=== PATIENT | male | born 1960 | race Caucasian/White ===

== ENCOUNTER 2018-01-19 08:51 | Inpatient (IN) | payer OTHER, MEDICARE ==
[~2018-01-19] VITALS: Ht 188 cm; Wt 129.5 kg
[~2018-01-19 08:51] MED LIST: AMARYL2 MG PO; AMLOD-VALSA-HC1 EAC2 PO; ASPIR 8181 M1; ASPIRIN81 M1 PO; AZULFIDINE500 MG PO; B COMPLETE1 EACH PO; BENAZEPRIL HCL10 MG PO; BENTYL20 MG PO; BIOTIN2500 MCG PO; BUTRANS1 EAC1 TD; CEFTIN500 MG PO; CELEBREX200 MG PO; CELECOXIB200 MG PO; CODEINE PO; COUMADIN5 MG PO; CYMBALTA30 MG PO; DECADRON0.5 MG; DILAUDID4 MG PO; DURAGESIC50 MCG TD; FLEXERIL10 MG; FLEXERIL10 MG PO; FOLIC ACID1 MG PO; GLUCOPHAGE850 MG PO; HUMIRA40 MG/0.8; HUMIRA40 MG/0.8 SQ; HYDROXYCHLOROQ200 MG PO; LEFLUNOMIDE20 MG PO; LIPITOR40 MG PO; LOMOTIL TABLET1 EACH PO; LOVENOX120 MG/0.8 SC; LYRICA75 MG PO; METFORMIN HCL850 MG PO; METHOTREXATE SODIUM SC; METHOTREXATE2.5 MG SC; METHYLPREDNISOLO4 MG PO; MILLIPRED5 MG PO; MOBIC7.5 MG PO; MUPIROCIN22 GM TP; NEURONTIN300 MG; NEURONTIN600 MG; NEURONTIN600 MG PO; NEURONTIN800 MG PO; NEXIUM40 MG; NEXIUM40 MG PO; NORVASC5 MG PO; OMEPRAZOLE40 M1 PO; ORENCIA250 MG/10 IV; PERCOCET 10/1 TABLET PO; PERCOCET 5/31 TABLET PO; PERCOCET 7.51 TABLET PO; PRAVASTATIN SOD40 MG PO; PREDNISONE5 MG PO; PROMETHAZINE HC25 M1 PO; PROMETHAZINE PO; RELAFEN500 M1; REMERON15 M2 PO; SIMVASTATIN40 M1 PO; SIMVASTATIN40 MG PO; TIZANIDINE HCL4 MG PO; VALIUM5 MG PO; VERAPAMIL HCL360 MG; VERELAN 360 MG360 MG PO; VESICARE5 MG PO; VITAMIN D22000 UNIT PO; XARELTO20 MG PO; ZANAFLEX4 M1 PO; ZOLOFT100 MG; [UNRECOGNIZED DRUG - OTHER] SC
[2018-01-19 09:25] VITALS: BP 139/72
[2018-01-19 16:00] VITALS: BP 130/62
[2018-01-19 19:41] VITALS: BP 129/65
[2018-01-19 20:00] VITALS: BP 129/65
[2018-01-19 23:37] VITALS: BP 125/61
[2018-01-20 04:00] VITALS: BP 114/60
[2018-01-20 08:03] VITALS: BP 130/67
[2018-01-20 12:49] VITALS: BP 150/70
[2018-01-20 15:35] VITALS: BP 130/68
[2018-01-21] VITALS (17 sets, daily range): BP systolic 104–147; BP diastolic 67–87
[2018-01-21 20:20] LABS: BASE EXCESS -0.5 mEq/L (-3 to +3); BICARBONATE 24.9 mEq/L (22-26); CARBOXY HGB 3.1 % (0-5); COMMENTS - BLOOD GASES C+; DEVICE VENT; FI02 50 %; MECHANICAL RATE 16 resp/min; METHEMOGLOBIN 1.4 % (0-1.5); MODE A/C; PCO2 43 mm Hg (35-45); PEEP 5 CM/H20; PO2 72 mm Hg (80-100); SITE LR; TIDAL VOLUME 450 ML; TOTAL RESP RATE 18 resp/min; pH 7.37 (7.35-7.45)
[2018-01-21 22:43] LABS: BASOPHIL (%) 0.1 % (0-1); EOSINOPHIL (%) 0 % (0-5); HEMATOCRIT 35.7 % (38.0-50.0); IMMATURE GRANULOCYTE (%) 0.6 % (0.0-0.7); LYMPHOCYTE (%) 1.9 % (15-42); LYMPHOCYTE COUNT 0.3 K/uL (1.0-2.8); MCH 30.9 PG (29.0-34.0); MCHC 33.9 G/DL (30.0-36.0); MCV 91.3 FL (86-99); MONOCYTE (%) 5.4 % (3-12); NEUTROPHIL COUNT 16.1 K/uL (1.8-6.4); PLATELET COUNT 222 K/uL (156-360); RBC DIS.WIDTH-CV 13.6 % (11.8-14.6); RBC DIS.WIDTH-SD 45.2 % (39-53); RED BLOOD COUNT 3.91 M/uL (4.00-5.50); WHITE BLOOD COUNT 17.5 K/uL (4.1-10.2)
[2018-01-21 22:50] LABS: HEMOGLOBIN 10.1 G/DL (12.5-16.6)
[2018-01-21 22:51] LABS: INTER. NORMALIZED RATIO 1.6
[2018-01-21 22:53] LABS: ALBUMIN 3.5 g/dL (3.2-4.8); CHLORIDE 102 mEq/L (99-109); POTASSIUM 4.9 mEq/L (3.7-5.4); SODIUM 136 mEq/L (136-147)
[2018-01-21 22:54] LABS: MAGNESIUM 2.9 mg/dL (1.3-2.7)
[2018-01-21 22:55] LABS: GLUCOSE 186 mg/dL (70-99)
[2018-01-21 22:56] LABS: TOTAL PROTEIN 6.1 g/dL (6.4-8.3)
[2018-01-21 22:57] LABS: TOTAL BILIRUBIN 1.2 mg/dL (0.0-1.0)
[2018-01-21 22:59] LABS: ALKALINE PHOSPHATASE 95 IU/L (3-129); CREATININE 0.8 mg/dL (0.6-1.3); GFR ESTIMATE (CALCULATED) > 59 mL/min/ (58.99-99999); PHOSPHORUS 3.3 mg/dL (2.5-4.9)
[2018-01-21 23:00] LABS: UREA NITROGEN (BUN) 11 mg/dL (9-23)
[2018-01-21 23:01] LABS: AST (GOT) 54 IU/L (2-34)
[2018-01-21 23:02] LABS: ALT (GPT) 64 IU/L (3-49)
[2018-01-22] VITALS (24 sets, daily range): BP systolic 86–121; BP diastolic 54–79
[2018-01-22 06:09] LABS: BASOPHIL (%) 0.1 % (0-1); EOSINOPHIL (%) 0 % (0-5); HEMATOCRIT 34.7 % (38.0-50.0); HEMOGLOBIN 11.4 G/DL (12.5-16.6); IMMATURE GRANULOCYTE (%) 0.7 % (0.0-0.7); LYMPHOCYTE (%) 3.2 % (15-42); LYMPHOCYTE COUNT 0.4 K/uL (1.0-2.8); MCH 30.8 PG (29.0-34.0); MCHC 32.9 G/DL (30.0-36.0); MCV 93.8 FL (86-99); MONOCYTE (%) 5.2 % (3-12); MONOCYTE COUNT 0.7 K/uL (0-0.8); NEUTROPHIL (%) 90.8 % (45-76); NEUTROPHIL COUNT 12.4 K/uL (1.8-6.4); PLATELET COUNT 236 K/uL (156-360); RBC DIS.WIDTH-CV 13.6 % (11.8-14.6); RBC DIS.WIDTH-SD 46.4 % (39-53); WHITE BLOOD COUNT 13.7 K/uL (4.1-10.2)
[2018-01-22 06:18] LABS: CHLORIDE 102 MEQ/L (99-109); CREATININE 0.8 MG/DL (0.6-1.3); GFR ESTIMATE (CALCULATED) > 59 mL/min/ (58.99-99999); GLUCOSE 196 mg/dL (70-99); POTASSIUM 4.1 MEQ/L (3.7-5.4); SODIUM 138 MEQ/L (136-147); UREA NITROGEN (BUN) 11 mg/dL (9-23)
[2018-01-23] VITALS (23 sets, daily range): BP systolic 90–123; BP diastolic 49–76
[2018-01-23 05:09] LABS: BASOPHIL (%) 0 % (0-1); EOSINOPHIL (%) 0 % (0-5); HEMATOCRIT 28.1 % (38.0-50.0); HEMOGLOBIN 9.5 G/DL (12.5-16.6); IMMATURE GRANULOCYTE (%) 0.7 % (0.0-0.7); LYMPHOCYTE (%) 5.6 % (15-42); LYMPHOCYTE COUNT 0.7 K/uL (1.0-2.8); MCHC 33.8 G/DL (30.0-36.0); MCV 91.8 FL (86-99); MONOCYTE (%) 7.4 % (3-12); MONOCYTE COUNT 0.9 K/uL (0-0.8); NEUTROPHIL (%) 86.3 % (45-76); NEUTROPHIL COUNT 10.6 K/uL (1.8-6.4); PLATELET COUNT 224 K/uL (156-360); RBC DIS.WIDTH-CV 13.5 % (11.8-14.6); RBC DIS.WIDTH-SD 45.2 % (39-53); RED BLOOD COUNT 3.06 M/uL (4.00-5.50); WHITE BLOOD COUNT 12.3 K/uL (4.1-10.2)
[2018-01-23 05:33] LABS: CHLORIDE 109 mEq/L (99-109); POTASSIUM 3.7 mEq/L (3.7-5.4); SODIUM 144 mEq/L (136-147)
[2018-01-23 05:35] LABS: GLUCOSE 167 mg/dL (70-99)
[2018-01-23 05:39] LABS: CREATININE 0.7 mg/dL (0.6-1.3); GFR ESTIMATE (CALCULATED) > 59 mL/min/ (58.99-99999)
[2018-01-23 05:40] LABS: UREA NITROGEN (BUN) 15 mg/dL (9-23)
[2018-01-24] VITALS (20 sets, daily range): BP systolic 96–136; BP diastolic 53–76
[2018-01-24 06:32] LABS: CHLORIDE 112 MEQ/L (99-109); CREATININE 0.5 MG/DL (0.6-1.3); GFR ESTIMATE (CALCULATED) > 59 mL/min/ (58.99-99999); GLUCOSE 161 mg/dL (70-99); POTASSIUM 3.8 MEQ/L (3.7-5.4); SODIUM 142 MEQ/L (136-147); UREA NITROGEN (BUN) 15 mg/dL (9-23)
[2018-01-24 07:02] LABS: BASOPHIL (%) 0 % (0-1); EOSINOPHIL (%) 0 % (0-5); HEMATOCRIT 26.9 % (38.0-50.0); HEMOGLOBIN 8.9 G/DL (12.5-16.6); IMMATURE GRANULOCYTE (%) 1.7 % (0.0-0.7); LYMPHOCYTE (%) 10.6 % (15-42); LYMPHOCYTE COUNT 0.8 K/uL (1.0-2.8); MCH 31.2 PG (29.0-34.0); MCHC 33.1 G/DL (30.0-36.0); MCV 94.4 FL (86-99); MONOCYTE (%) 4.3 % (3-12); MONOCYTE COUNT 0.3 K/uL (0-0.8); NEUTROPHIL (%) 83.4 % (45-76); NEUTROPHIL COUNT 6.4 K/uL (1.8-6.4); PLATELET COUNT 186 K/uL (156-360); RBC DIS.WIDTH-CV 13.6 % (11.8-14.6); RED BLOOD COUNT 2.85 M/uL (4.00-5.50); WHITE BLOOD COUNT 7.6 K/uL (4.1-10.2)
[2018-01-24] MEDS ORDERED: METHOTREXA250 MG/10 SC (12:29)
[2018-01-24] MEDS ORDERED: PROMETHAZINE V473 ML PO (12:30)
[2018-01-24 13:51] LABS: INTER. NORMALIZED RATIO 1.1
[2018-01-24 13:54] LABS: PTT 24.3 SEC (25-37)
[2018-01-25] VITALS (22 sets, daily range): BP systolic 123–155; BP diastolic 62–93
[2018-01-25 03:27] LABS: BASOPHIL (%) 0.1 % (0-1); EOSINOPHIL (%) 0 % (0-5); HEMATOCRIT 28.6 % (38.0-50.0); HEMOGLOBIN 9.5 G/DL (12.5-16.6); IMMATURE GRANULOCYTE (%) 1.7 % (0.0-0.7); LYMPHOCYTE (%) 8.4 % (15-42); LYMPHOCYTE COUNT 0.8 K/uL (1.0-2.8); MCH 30.8 PG (29.0-34.0); MCHC 33.2 G/DL (30.0-36.0); MCV 92.9 FL (86-99); MONOCYTE (%) 5.9 % (3-12); MONOCYTE COUNT 0.6 K/uL (0-0.8); NEUTROPHIL (%) 83.9 % (45-76); NEUTROPHIL COUNT 7.9 K/uL (1.8-6.4); NRBC (%) 0.2 /100 WBC (0-0); RBC DIS.WIDTH-CV 13.7 % (11.8-14.6); RBC DIS.WIDTH-SD 46.1 % (39-53); RED BLOOD COUNT 3.08 M/uL (4.00-5.50); WHITE BLOOD COUNT 9.4 K/uL (4.1-10.2)
[2018-01-25 03:28] LABS: PLATELET COUNT 243 K/uL (156-360)
[2018-01-25 03:39] LABS: CHLORIDE 111 mEq/L (99-109); POTASSIUM 4.1 mEq/L (3.7-5.4); SODIUM 144 mEq/L (136-147)
[2018-01-25 03:46] LABS: GLUCOSE 171 mg/dL (70-99)
[2018-01-25 03:47] LABS: TROP-I INTERPRETATION NEGATIVE; TROPONIN-I 0.01 ng/mL (0.0-0.30)
[2018-01-25 03:49] LABS: PHOSPHORUS 3.2 mg/dL (2.5-4.9)
[2018-01-25 03:50] LABS: CREATININE 0.7 mg/dL (0.6-1.3); GFR ESTIMATE (CALCULATED) > 59 mL/min/ (58.99-99999)
[2018-01-25 03:51] LABS: UREA NITROGEN (BUN) 15 mg/dL (9-23)
[2018-01-25 03:53] LABS: MAGNESIUM 2.5 mg/dL (1.3-2.7)
[2018-01-25 22:44] LABS: GLUCOSE 50 mg/dL (70-99)
[2018-01-26] VITALS (11 sets, daily range): BP systolic 113–144; BP diastolic 58–79
[2018-01-26 05:23] LABS: HEMOGLOBIN 9.6 G/DL (12.5-16.6); MCHC 33.1 G/DL (30.0-36.0); MCV 93.5 FL (86-99); PLATELET COUNT 224 K/uL (156-360); RBC DIS.WIDTH-CV 13.7 % (11.8-14.6); RBC DIS.WIDTH-SD 46.7 % (39-53); WHITE BLOOD COUNT 7.9 K/uL (4.1-10.2)
[2018-01-26 21:45] LABS: C DIFF TOXIN NEGATIVE (NEGATIVE)
[2018-01-27 00:10] VITALS: BP 145/76
[2018-01-27 04:00] VITALS: BP 134/75
[2018-01-27 08:50] VITALS: BP 116/68
[2018-01-27 11:32] VITALS: BP 134/72
[2018-01-27 17:02] VITALS: BP 122/67
[2018-01-27 19:30] VITALS: BP 135/69
[2018-01-28] VITALS (13 sets, daily range): BP systolic 106–151; BP diastolic 59–86
[2018-01-28 05:53] LABS: HEMATOCRIT 28.8 % (38.0-50.0); HEMOGLOBIN 9.6 G/DL (12.5-16.6); MCH 30.5 PG (29.0-34.0); MCHC 33.3 G/DL (30.0-36.0); MCV 91.4 FL (86-99); PLATELET COUNT 229 K/uL (156-360); RBC DIS.WIDTH-CV 13.4 % (11.8-14.6); RBC DIS.WIDTH-SD 44.3 % (39-53); RED BLOOD COUNT 3.15 M/uL (4.00-5.50)
[2018-01-28 15:53] LABS: INTER. NORMALIZED RATIO 1.2
[2018-01-28 15:55] LABS: PTT 27.8 SEC (25-37)
[2018-01-28 16:07] LABS: ALBUMIN 3.2 G/DL (3.2-4.8); ALKALINE PHOSPHATASE 67 IU/L (3-129); ALT (GPT) 33 IU/L (3-49); AST (GOT) 16 IU/L (2-34); CHLORIDE 106 MEQ/L (99-109); CREATININE 0.7 MG/DL (0.6-1.3); GFR ESTIMATE (CALCULATED) > 59 mL/min/ (58.99-99999); HIGH-SENS C-REACTIVE PROTEIN 5.43 MG/DL (0.02-0.20); MAGNESIUM 2.1 mg/dl (1.3-2.7); PHOSPHORUS 4.3 mg/dL (2.5-4.9); POTASSIUM 3.9 MEQ/L (3.7-5.4); SODIUM 143 MEQ/L (136-147); TOTAL BILIRUBIN 0.7 MG/DL (0.0-1.0); TOTAL PROTEIN 5.2 G/DL (6.4-8.3); UREA NITROGEN (BUN) 8 mg/dL (9-23)
[2018-01-28 16:09] LABS: GLUCOSE 146 mg/dL (70-99)
[2018-01-28 16:13] LABS: FIBRINOGEN 529 mg/dL (150-450)
[2018-01-28 18:04] LABS: TROP-I INTERPRETATION NEGATIVE; TROPONIN-I < 0.01 ng/mL (0.0-0.30)
[2018-01-29] VITALS (18 sets, daily range): BP systolic 116–149; BP diastolic 58–93
[2018-01-30 03:00] VITALS: BP 156/70
[2018-01-30 07:15] VITALS: BP 126/69
[2018-01-30 11:16] VITALS: BP 128/74
[2018-01-30 17:27] VITALS: BP 124/80
[2018-01-30 19:49] VITALS: BP 126/63
[2018-01-30 23:27] VITALS: BP 133/62
[2018-01-31 04:33] VITALS: BP 124/59
[2018-01-31 05:20] LABS: HEMATOCRIT 29.8 % (38.0-50.0); HEMOGLOBIN 9.8 G/DL (12.5-16.6); MCH 30.4 PG (29.0-34.0); MCHC 32.9 G/DL (30.0-36.0); MCV 92.5 FL (86-99); PLATELET COUNT 247 K/uL (156-360); RBC DIS.WIDTH-CV 13.4 % (11.8-14.6); RBC DIS.WIDTH-SD 45.1 % (39-53); RED BLOOD COUNT 3.22 M/uL (4.00-5.50); WHITE BLOOD COUNT 7.4 K/uL (4.1-10.2)
[2018-01-31 07:15] VITALS: BP 126/56
== END 2018-01-31 11:32 | disposition home or self-care (01) | DRG 472 ==
LOC: SDC 08:51 → EDSTATUS 14:12 → 3EAST 14:15 → 2SOUTH 14:34 → 3EAST 14:39 → ENRESERV 14:42 → SDC 15:03 → ENRESERV 15:29 → SDC 15:35 → EDSTATUS 15:35 → SDC 15:36 → 3EAST 16:00 → 4WEST 01-20 08:32 → 3EAST 01-20 08:32 → 4EAST 01-20 08:32 → 3EAST 01-20 08:32 → ENRESERV 01-21 20:39 → 4WEST 01-21 21:03 → ENRESERV 01-26 14:12 → 4EAST 01-26 15:32 → ENRESERV 01-28 11:14 → 4WEST 01-28 11:45 → ENRESERV 01-29 19:40 → 4WEST 01-29 21:04 → 4EAST 01-29 22:19
PROVIDERS: Internal Medicine; Internal Medicine Critical Care Medicine; Neurological Surgery; Obstetrics & Gynecology; Specialist
DX: M50.21 Other cervical disc displacement, high cervical region (principal); D68.32 Hemorrhagic disorder due to extrinsic circulating anticoagulants; G97.61 Postprocedural hematoma of a nervous system organ or structure following a nervous system procedure; T45.515A Adverse effect of anticoagulants, initial encounter; M47.812 Spondylosis without myelopathy or radiculopathy, cervical region; M48.02 Spinal stenosis, cervical region; M06.9 Rheumatoid arthritis, unspecified; R13.10 Dysphagia, unspecified; M32.9 Systemic lupus erythematosus, unspecified; B37.0 Candidal stomatitis; M50.01 Cervical disc disorder with myelopathy, high cervical region; Z79.01 Long term (current) use of anticoagulants; E66.9 Obesity, unspecified; Z68.33 Body mass index [BMI] 33.0-33.9, adult; D86.9 Sarcoidosis, unspecified; E11.9 Type 2 diabetes mellitus without complications; D68.61 Antiphospholipid syndrome; K21.9 Gastro-esophageal reflux disease without esophagitis; Z86.718 Personal history of other venous thrombosis and embolism; D64.9 Anemia, unspecified; Z86.711 Personal history of pulmonary embolism; I10 Essential (primary) hypertension; G89.29 Other chronic pain; E78.5 Hyperlipidemia, unspecified
CPT/HCPCS: 36600; 70490; 71045; 72020; 72040; 76000; 80048; 80053; 82803; 82948; 83735; 84100; 84145 90; 84484; 84999; 85025; 85027; 85384; 85610; 85730; 86141; 86850; 86900; 86901; 87070; 87102; 87205; 87493; 87641; 93005; 93970; 94002; 94003; 94640; 94640 76; 94760; 94799; 97530 GO; 97530 GP; 99202; C1713; C1750; C1769; G0378; J0295; J0330; J0690; J1100; J1170; J1450; J1644; J1650; J1815; J2060; J2250; J2405; J2704; J2710; J2720; J3010; J3480; J7030; J7050; J7643; S0020; S0028